=== PATIENT | male | born 1990 | race Caucasian/White ===

== ENCOUNTER 2018-12-10 19:59 | Inpatient (IN) | payer MEDICAID, OTHER ==
--- NOTE | 2018-12-10 20:24 | ED PDOC ---
Arrival/HPI - General Chief Complaint: Chest Pain Time Seen by Provider: 12/10/18 20:09 Historian: Patient - History of Present Illness Narrative History of Present Illness (Text): 12/10/18 20:23 Shun Vizcaino is a 28 year old male, whose past medical history includes hypertension, who presents to the ED complaining of chest pain. Patient states he has been experiencing left-sided chest pain intermittently for the past 3 days. Patient notes his blood pressure has been elevated but reports that he does not take any antihypertensive medication. Patient denies any fever, chills, shortness of breath, nausea, vomiting, diarrhea, urinary symptoms, back pain, neck pain, headache, dizziness, or any other complaints. Time/Duration: < week Symptom Onset: Gradual Symptom Course: Unchanged Activities at Onset: Light Context: Home Past Medical History - Provider Review Nursing Documentation Reviewed: Yes - Infectious Disease Hx of Infectious Diseases: None - Psychiatric Hx Substance Use: No - Anesthesia Hx Anesthesia: No Family/Social History - Physician Review Nursing Documentation Reviewed: Yes Family/Social History: Unknown Family HX Smoking Status: Never Smoked Hx Alcohol Use: No Hx Substance Use: No Allergies/Home Meds Allergies/Adverse Reactions: Allergies No Known Allergies Allergy (Verified 12/10/18 20:09) Home Medications: Home Meds Medication Instructions Recorded Confirmed No Known Home Med 12/10/18 12/10/18 Review of Systems - Physician Review All systems were reviewed & negative as marked: Yes - Review of Systems Constitutional: Normal. absent: Fevers Eyes: Normal ENT: Normal Respiratory: Normal. absent: SOB, Cough Cardiovascular: Chest Pain, Other (+high blood pressure) Gastrointestinal: Normal. absent: Abdominal Pain, Diarrhea, Nausea, Vomiting Genitourinary Male: Normal. absent: Dysuria, Frequency, Hematuria, Urinary Output Changes Musculoskeletal: Normal. absent: Back Pain, Neck Pain Skin: Normal. absent: Rash Endocrine: Normal Hemo/Lymphatic: Normal Psychiatric: Normal Physical Exam Vital Signs Reviewed: Yes Temperature: Afebrile Blood Pressure: Hypertensive Pulse: Regular Respiratory Rate: Normal Appearance: Positive for: Well-Appearing, Non-Toxic, Comfortable Pain Distress: None Mental Status: Positive for: Alert and Oriented X 3 - Systems Exam Head: Present: Atraumatic, Normocephalic Pupils: Present: PERRL Extroacular Muscles: Present: EOMI Conjunctiva: Present: Normal Mouth: Present: Moist Mucous Membranes Neck: Present: Normal Range of Motion Respiratory/Chest: Present: Clear to Auscultation, Good Air Exchange. No: Respiratory Distress, Accessory Muscle Use Cardiovascular: Present: Regular Rate and Rhythm, Normal S1, S2. No: Murmurs Abdomen: No: Tenderness, Distention, Peritoneal Signs Back: Present: Normal Inspection Upper Extremity: Present: Normal Inspection. No: Cyanosis, Edema Lower Extremity: Present: Normal Inspection. No: Edema Neurological: Present: GCS=15, CN II-XII Intact, Speech Normal Skin: Present: Warm, Dry, Normal Color. No: Rashes Psychiatric: Present: Alert, Oriented x 3, Normal Insight, Normal Concentration Medical Decision Making ED Course and Treatment: 12/10/18 20:23 Impression: 28 year old male complaining of chest pain and high blood pressure. Plan: -- EKG -- Chest X-ray -- Labs, cardiac enzymes -- Urinalysis -- Nitroglycerin -- Aspirin -- Reassess and disposition Prior Visits: Notes and results from previous visits were reviewed. Progress Notes: Reviewed EKG, NSR at 86 bpm[address] Non-specific ST/T wave changes. 12/10/18 22:55 Chest X-ray reviewed, shows no acute processes. 12/10/18 23:04 Case discussed with medical translator plastic injection mold maker, who is aware and agrees with plan. 12/10/18 23:[address] Strange, who is aware and agrees with plan. Accepts pt in to hospitalist service. - Scribe Statement The provider has reviewed the documentation as recorded by the Karyn Li Provider Scribe Attestation: All medical record entries made by the Scribtam were at my direction and personally dictated by me. I have reviewed the chart and agree that the record accurately reflects my personal performance of the history, physical exam, medical decision making, and the department course for this patient. I have also personally directed, reviewed, and agree with the discharge instructions and disposition. Disposition/Present on Arrival - Present on Arrival Any Indicators Present on Arrival: No History of DVT/PE: No History of Uncontrolled Diabetes: No Urinary Catheter: No History of Decub. Ulcer: No History Surgical Site Infection Following: None - Disposition Have Diagnosis and Disposition been Completed?: Yes Diagnosis: Chest pain Disposition: HOSPITALIZED Disposition Time: 23:00 Condition: GOOD
[2018-12-10] MEDS ORDERED: Nitroglycerin 2% Ointment Foilpak UD TOP STA (20:25)
[2018-12-10 20:46] LABS: BASO # 0.04 {null, K/mm3} (0.0-2.0); BASO % 0.5 % (0.0-3.0); EOS # 0.2 (0.0-0.7); EOS % 2.9 % (1.5-5.0); HEMOGLOBIN 13.5 g/dL (14.0-18.0); LYMPH # 2.9 (1.2-3.4); LYMPH % 34.5 % (22.0-35.0); MEAN CELL VOLUME 83.5 fl (80.0-105.0); MEAN CORPUSCULAR HEMOGLOBIN 28.2 pg (25.0-35.0); MEAN CORPUSCULAR HGB CONC 33.8 g/dl (31.0-37.0); MONO # 0.5 (0.1-0.6); MONO % 6.3 % (1.0-6.0); RBC 4.78 {null, 10^6/uL} (3.5-6.1); RED CELL DISTRIBUTION WIDTH 13.2 % (11.5-14.5); WHITE BLOOD COUNT 8.3 {null, 10^3/uL} (4.5-11.0)
[2018-12-10 20:57] LABS: ALB/GLOB RATIO 1.3 (1.1-1.8); ALBUMIN 4.4 g/dL (3.0-4.8); ALT/SGPT 32 U/L (7-56); AST/SGOT 39 U/L (17-59); BLOOD UREA NITROGEN 19 mg/dL (7-21); CALCIUM 9.4 mg/dL (8.4-10.5); GFR NON-AFRICAN AMERICAN > 60
[2018-12-10 21:08] LABS: TROPONIN I < 0.01 ng/mL
--- NOTE | 2018-12-11 00:05 | CP.PCM.HP ---
<Rey Daley - Last Filed: 12/11/18 00:38> History of Present Illness - History of Present Illness History of Present Illness: PGY-1 Medicine H&P for Dr. Strange CC: Chest pain HPI: Patient is a 28 year old male with a past medical history of hypertension presenting with left-sided chest pain. He describes the pain to be burning, constant, 3/10, and radiating to his left arm. Patient states that the pain is worse after meals and especially after eating spicy food. He states that he has been having this pain for many years but has been worse in the last 5 days. He states that taking Tums help relief the pain. 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 He states that he has hypertension but is not taking any medications because he does not have a primary care doctor. He is complaining of a headache that he states is secondary to his high blood pressure. He denies dizziness, changes in vision, changes in hearing, or speech changes. He further denies fevers, chills, shortness of breath, abdominal pain, nausea, vomiting, diarrhea, or urinary symptoms. 12-point ROS reviewed and negative except mentioned in HPI. PMHx: Hypertension PSHX: denies Allergies: NKDA Family Hx: Mother and father have diabetes. Social Hx: Denies tobacco, alcohol, or drug use. Patient works as a straight truck driver. Medications: Denies PMD: None Present on Admission - Present on Admission Any Indicators Present on Admission: No History of DVT/PE: No History of Uncontrolled Diabetes: No Urinary Catheter: No Decubitus Ulcer Present: No Past Patient History - Infectious Disease Hx of Infectious Diseases: None - Past Social History Smoking Status: Never Smoked - PSYCHIATRIC Hx Substance Use: No - SURGICAL HISTORY Hx Surgeries: No - ANESTHESIA Hx Anesthesia: No Meds Allergies/Adverse Reactions: Allergies Allergy/AdvReac Type Severity Reaction Status Date / Time No Known Allergies Allergy Verified 12/10/18 20:09 Physical Exam - Constitutional Appears: Well, Non-toxic, No Acute Distress - Head Exam Head Exam: ATRAUMATIC, NORMAL INSPECTION, NORMOCEPHALIC - Eye Exam Eye Exam: EOMI, Normal appearance, PERRL Pupil Exam: NORMAL ACCOMODATION - ENT Exam ENT Exam: Mucous Membranes Moist - Neck Exam Neck exam: Positive for: Normal Inspection. Negative for: Tenderness - Respiratory Exam Respiratory Exam: Clear to Auscultation Bilateral, NORMAL BREATHING PATTERN. absent: Accessory Muscle Use, Rales, Rhonchi, Wheezes, Respiratory Distress - Cardiovascular Exam Cardiovascular Exam: REGULAR RHYTHM, +S1, +S2. absent: Tachycardia, Gallop, Rubs, Systolic Murmur - GI/Abdominal Exam GI & Abdominal Exam: Normal Bowel Sounds, Soft. absent: Distended, Firm, Guarding, Tenderness - Back Exam Back exam: NORMAL INSPECTION. absent: CVA tenderness (L), CVA tenderness (R), paraspinal tenderness, vertebral tenderness - Neurological Exam Neurological exam: Alert, CN II-XII Intact, Oriented x3 - Psychiatric Exam Psychiatric exam: Normal Affect, Normal Mood - Skin Skin Exam: Dry, Intact, Normal Color, Warm Results - Vital Signs Recent Vital Signs: Last Vital Signs Temp 98.1 F 12/10/18 20:11 Pulse 80 12/10/18 23:38 Resp 18 12/10/18 21:54 BP 154/90 H 12/10/18 23:38 Pulse Ox 98 12/10/18 21:54 - Labs Result Diagrams: 12/10/18 20:38 12/10/18 20:38 Labs: Laboratory Results - last 24 hr 12/10/18 12/10/18 20:38 20:38 WBC 8.3 RBC 4.78 Hgb 13.5 L Hct 39.9 L MCV 83.5 MCH 28.2 MCHC 33.8 RDW 13.2 Plt Count 288 MPV 10.0 Neut % (Auto) 55.8 Lymph % (Auto) 34.5 Monroe % (Auto) 6.3 H Eos % (Auto) 2.9 Baso % (Auto) 0.5 Lymph # (Auto) 2.9 Monroe # (Auto) 0.5 Eos # (Auto) 0.2 Baso # (Auto) 0.04 Absolute Neuts (auto) 4.63 Sodium 139 Potassium 3.7 Chloride 103 Carbon Dioxide 27 Anion Gap 12 BUN 19 Creatinine 1.1 Est GFR ( Amer) > 60 Est GFR (Non-Af Amer) > 60 Random Glucose 122 H Calcium 9.4 Magnesium 2.1 Total Bilirubin 1.1 AST 39 ALT 32 Alkaline Phosphatase 57 Lactate Dehydrogenase 575 Total Creatine Kinase 181 Troponin I < 0.01 Total Protein 7.7 Albumin 4.4 Globulin 3.4 Albumin/Globulin Ratio 1.3 Assessment & Plan - Assessment and Plan (Free Text) Assessment: Patient is a 28 year old male with a past medical history of hypertension presenting with left-sided chest pain. Plan: Chest pain - Likely 2/2 GERD, rule out ACS - CXR: no acute findings (prelim report) - EKG: NSR at 86 bpm. Non-specific ST/T wave changes. - Follow up repeat EKG - Troponin: <0.01 X 1 - Trend troponin - Cardiology consulted, Dr. Strickland - Pepcid 20mg PO BID - Maalox PRN for heartburn - Tylenol PRN Uncontrolled hypertension - Hydralazine 10mg IVP Q6 PRN for SBP >180 - 1 dose of Lisinopril given in ED - Continue to monitor Prophylaxis: - DVT: Lovenox 40mg SC QD - GI: Pepcid 20mg PO BID Case discussed with attending, Dr. Strange. Rey Daley, PGY-1 <Ines Strange - Last Filed: 12/11/18 10:55> Results - Vital Signs Recent Vital Signs: Last Vital Signs Temp 97.6 F 12/11/18 06:00 Pulse 86 12/11/18 06:00 Resp 20 12/11/18 06:00 BP 133/79 12/11/18 06:00 Pulse Ox 98 12/11/18 06:00 - Labs Result Diagrams: 12/11/18 06:20 12/11/18 06:20 Labs: Laboratory Results - last 24 hr 12/10/18 12/10/18 12/11/18 20:38 20:38 06:20 WBC 8.3 9.4 RBC 4.78 4.75 Hgb 13.5 L 13.2 L Hct 39.9 L 40.0 L MCV 83.5 84.2 MCH 28.2 27.8 MCHC 33.8 33.0 RDW 13.2 13.3 Plt Count 288 283 MPV 10.0 9.9 Neut % (Auto) 55.8 65.3 Lymph % (Auto) 34.5 24.7 Monroe % (Auto) 6.3 H 7.7 H Eos % (Auto) 2.9 1.8 Baso % (Auto) 0.5 0.5 Lymph # (Auto) 2.9 2.3 Monroe # (Auto) 0.5 0.7 H Eos # (Auto) 0.2 0.2 Baso # (Auto) 0.04 0.05 Absolute Neuts (auto) 4.63 6.12 Sodium 139 Potassium 3.7 Chloride 103 Carbon Dioxide 27 Anion Gap 12 BUN 19 Creatinine 1.1 Est GFR ( Amer) > 60 Est GFR (Non-Af Amer) > 60 Random Glucose 122 H Calcium 9.4 Magnesium 2.1 Total Bilirubin 1.1 AST 39 ALT 32 Alkaline Phosphatase 57 Lactate Dehydrogenase 575 Total Creatine Kinase 181 Troponin I < 0.01 Total Protein 7.7 Albumin 4.4 Globulin 3.4 Albumin/Globulin Ratio 1.3 Triglycerides Cholesterol LDL Cholesterol Direct HDL Cholesterol 12/11/18 12/11/18 06:20 07:00 WBC RBC Hgb Hct MCV MCH MCHC RDW Plt Count MPV Neut % (Auto) Lymph % (Auto) Monroe % (Auto) Eos % (Auto) Baso % (Auto) Lymph # (Auto) Monroe # (Auto) Eos # (Auto) Baso # (Auto) Absolute Neuts (auto) Sodium 140 Potassium 3.8 Chloride 105 Carbon Dioxide 28 Anion Gap 12 BUN 17 Creatinine 1.1 Est GFR ( Amer) > 60 Est GFR (Non-Af Amer) > 60 Random Glucose 103 Calcium 9.0 Magnesium Total Bilirubin 1.0 AST 30 ALT 33 Alkaline Phosphatase 53 Lactate Dehydrogenase Total Creatine Kinase Troponin I < 0.01 Total Protein 7.3 Albumin 4.1 Globulin 3.2 Albumin/Globulin Ratio 1.3 Triglycerides 158 Cholesterol 150 LDL Cholesterol Direct 109 HDL Cholesterol 24 L Attending/Attestation - Attestation I have personally seen and examined this patient.: Yes I have fully participated in the care of the patient.: Yes I have reviewed all pertinent clinical information: Yes Notes (Text): 12/11/18 10:52 Patient was seen when he was in the ER. Medical record was reviewed. Agree with history, physical examination, assessment and plan.
[2018-12-11] MEDS ORDERED: Alum-Mag Hydrox-Simethicone Susp (30 mL) PO PRN (00:26)
[2018-12-11 00:29] VITALS: BMI 36.8
[2018-12-11 06:53] LABS: BASO # 0.05 {null, K/mm3} (0.0-2.0); BASO % 0.5 % (0.0-3.0); EOS # 0.2 (0.0-0.7); EOS % 1.8 % (1.5-5.0); HEMOGLOBIN 13.2 g/dL (14.0-18.0); LYMPH # 2.3 (1.2-3.4); LYMPH % 24.7 % (22.0-35.0); MEAN CELL VOLUME 84.2 fl (80.0-105.0); MEAN CORPUSCULAR HEMOGLOBIN 27.8 pg (25.0-35.0); MEAN PLATELET VOLUME 9.9 fl (7.0-11.0); MONO # 0.7 (0.1-0.6); MONO % 7.7 % (1.0-6.0); RBC 4.75 {null, 10^6/uL} (3.5-6.1); RED CELL DISTRIBUTION WIDTH 13.3 % (11.5-14.5); WHITE BLOOD COUNT 9.4 {null, 10^3/uL} (4.5-11.0)
[2018-12-11 07:14] LABS: TROPONIN I < 0.01 ng/mL
[2018-12-11 07:35] LABS: ALB/GLOB RATIO 1.3 (1.1-1.8); ALBUMIN 4.1 g/dL (3.0-4.8); ALT/SGPT 33 U/L (7-56); AST/SGOT 30 U/L (17-59); BLOOD UREA NITROGEN 17 mg/dL (7-21); GFR NON-AFRICAN AMERICAN > 60
[2018-12-11 07:52] VITALS: RESP 20
[2018-12-11 08:23] LABS: HDL CHOLESTEROL 24 mg/dL (29-60)
[2018-12-11 08:35] LABS: LDL CHOLESTEROL 109 mg/dL (0-129)
[2018-12-11] MEDS: Enoxaparin 40 mg Syringe SC SCH (09:16)
--- NOTE | 2018-12-11 10:43 | CARD ---
APPROVED REPORT Date of service: 12/11/2018 EKG Measurement Heart [id number] <Conclusion> Normal sinus rhythm Possible Left atrial enlargement Borderline ECG
--- NOTE | 2018-12-11 10:49 | CARD ---
APPROVED REPORT Date of service: 12/10/2018 EKG Measurement Heart [id number] <Conclusion> Normal sinus rhythm Possible Left atrial enlargement Borderline ECG
--- NOTE | 2018-12-11 12:23 | RAD ---
Date of service: 12/10/2018 HISTORY: Chest pain. COMPARISON: No prior. FINDINGS: LUNGS: No active pulmonary disease. PLEURA: No significant pleural effusion identified, no pneumothorax apparent. CARDIOVASCULAR: No atherosclerotic calcification present No radiographic findings to suggest acute or significant cardiovascular disease. OSSEOUS STRUCTURES: No significant abnormalities. VISUALIZED UPPER ABDOMEN: Normal. OTHER FINDINGS: None. IMPRESSION: No active disease.
[2018-12-11 15:01] LABS: PH,URINE 7.5 (4.7-8.0); URINE BILIRUBIN NEGATIVE (NEGATIVE); URINE BLOOD NEGATIVE (NEGATIVE); URINE GLUCOSE (UA) NEGATIVE (NEGATIVE); URINE LEUKOCYTE ESTERASE NEGATIVE Leu/uL (NEGATIVE); URINE PROTEIN NEGATIVE mg/dL (<30 mg/dL); URINE UROBILINOGEN 0.2 E.U./dL (<1 E.U./dL)
[2018-12-11 15:09] LABS: URINE APPEARANCE CLEAR (CLEAR); URINE COLOR YELLOW (YELLOW)
[2018-12-11 15:43] LABS: BARBITURATES, UR NEGATIVE (NEGATIVE); BENZODIAZEPINES, UR NEGATIVE (NEGATIVE); OPIATES, UR NEGATIVE (NEGATIVE); PHENCYCLIDINE, UR NEGATIVE (NEGATIVE)
--- NOTE | 2018-12-11 22:59 | CON ---
DATE: 12/11/2018 CARDIOLOGY CONSULT REASON FOR CONSULTATION: Chest pain. HISTORY OF PRESENT ILLNESS: The patient is a 28-year-old markedly obese, American male who has no known prior cardiac history except for mild hypertension, presented because of chest pain, which he describes as burning following meals. The patient denies any associated diaphoresis and he is unaware of any prior cardiac history. SOCIAL HISTORY: The patient is a nonsmoker and nondrinker. He works as a cdl a driver. MEDICATIONS: Hydralazine 10 mg intravenously every 6 hours p.r.n., Lovenox 40 mg subcutaneous once a day, Maalox plus 30 mL every 6 hours, Pepcid 20 mg p.o. twice a day, and Tylenol 650 mg every 6 hours. REVIEW OF SYSTEMS: No nausea or vomiting. No fever or chills. PHYSICAL EXAMINATION: GENERAL: The patient is a young male who does not appear to be in acute distress. VITAL SIGNS: Blood pressure 133/79, heart rate 86, temperature 97.6, and respirations 20. HEENT: Normocephalic. CHEST: Clear. HEART: S1 and S2 regular. EXTREMITIES: No edema. No calf tenderness. LABORATORY DATA: Today's hemoglobin and hematocrit 15.2 and 40. White count and platelet count are within normal limits. Today's SMA-7 is within normal limits. Three sets of troponins are negative. Lipid profiles are within normal limits except for HDL at 24. EKG revealed normal sinus rhythm, possibly left atrial enlargement. Chest x-ray revealed borderline cardiomegaly. ASSESSMENT: 1. Atypical chest pain, myocardial infarction is ruled out. 2. Hypertension. 3. Rule out peptic ulcer disease. RECOMMENDATIONS: Continue hydralazine 10 mg intravenously every 6 hours p.r.n. Continue subcutaneous Lovenox. Obtain an echocardiographic study as well as gallbladder ultrasound. Neil Strickland MD
[2018-12-12] MEDS ORDERED: Oxycodone/Acetaminophen 5/325 mg Tab PO STA (00:06)
[2018-12-12 06:28] LABS: BASO # 0.05 {null, K/mm3} (0.0-2.0); BASO % 0.5 % (0.0-3.0); EOS # 0.2 (0.0-0.7); HEMOGLOBIN 13.5 g/dL (14.0-18.0); LYMPH # 2.1 (1.2-3.4); LYMPH % 21.9 % (22.0-35.0); MEAN CELL VOLUME 84.2 fl (80.0-105.0); MEAN CORPUSCULAR HEMOGLOBIN 27.7 pg (25.0-35.0); MEAN CORPUSCULAR HGB CONC 32.9 g/dl (31.0-37.0); MEAN PLATELET VOLUME 9.7 fl (7.0-11.0); MONO # 0.8 (0.1-0.6); MONO % 8.6 % (1.0-6.0); RBC 4.87 {null, 10^6/uL} (3.5-6.1); RED CELL DISTRIBUTION WIDTH 13.3 % (11.5-14.5); WHITE BLOOD COUNT 9.6 {null, 10^3/uL} (4.5-11.0)
[2018-12-12 06:37] LABS: ALB/GLOB RATIO 1.2 (1.1-1.8); ALBUMIN 4.2 g/dL (3.0-4.8); ALT/SGPT 27 U/L (7-56); AST/SGOT 28 U/L (17-59); BLOOD UREA NITROGEN 14 mg/dL (7-21); CALCIUM 8.5 mg/dL (8.4-10.5); GFR NON-AFRICAN AMERICAN > 60
[2018-12-12] MEDS: Enoxaparin 40 mg Syringe SC SCH (09:23)
--- NOTE | 2018-12-12 10:39 | US ---
Date of service: 12/11/2018 HISTORY: r/o stones COMPARISON: None. TECHNIQUE: Sonographic evaluation of the right upper quadrant of the abdomen. FINDINGS: LIVER: Measures 14.21 x 11.72 cm in length. Increased echogenicity of the liver parenchyma. No mass. No intrahepatic bile duct dilatation. There is normal flow in the hepatic and portal veins. GALLBLADDER: Unremarkable. No gallstones. COMMON BILE DUCT: Measures 3 mm. No stones. No dilatation. PANCREAS: Not visualized RIGHT KIDNEY: Measures 11.21 x 5.32 x 5.27 cm in length. Normal echogenicity. No calculus, mass, or hydronephrosis. AORTA: Not visualized IVC: Not visualized OTHER FINDINGS: The report concurs with the preliminary [facility] report IMPRESSION: Fatty infiltration of the liver
--- NOTE | 2018-12-12 11:31 | CP.PCM.PN ---
<Martine Neal - Last Filed: 12/12/18 12:54> Subjective - Date & Time of Evaluation Date of Evaluation: 12/12/18 Time of Evaluation: 08:30 - Subjective Subjective: Pgy3 Medicine Progress note for Dr. Turcios Patient seen and examined at bedside. Nursing reported overnight patient complained of some diffuse body pains and had an elevated BP. This AM patient was resting comfortably with girlfriend at bedside. Continues to complain of body aches but denies any fever, chills, headache, dizziness, chest pain, palpitations, SOB, cough, abd pain, nausea, vomiting, bowel/bladder complaints, swelling in his legs bilaterally. Patient is eager to shower. Objective - Vital Signs/Intake and Output Vital Signs (last 24 hours): Temp Pulse Resp BP Pulse Ox 98.1 F 79 20 161/88 H 98 12/12/18 10:26 12/12/18 10:26 12/11/18 16:47 12/12/18 10:12/11/18 16:47 - Medications Medications: Current Medications Acetaminophen (Tylenol 325mg Tab) 650 mg PO Q6H PRN PRN Reason: Headache Last Admin: 12/12/18 10:26 Dose: 650 mg Al Hydrox/Mg Hydrox/Simethicone (Maalox Plus 30 Ml) 30 ml PO Q6H PRN PRN Reason: Indigestion / Heartburn Last Admin: 12/11/18 07:56 Dose: 30 ml Enoxaparin Sodium (Lovenox) 40 mg SC DAILY [facility]; Protocol Last Admin: 12/12/18 09:23 Dose: 40 mg Famotidine (Pepcid) 20 mg PO 1000,2200 [facility] Last Admin: 12/12/18 09:22 Dose: 20 mg Hydralazine HCl (Apresoline) 10 mg IVP Q6H PRN PRN Reason: Systolic Blood Pressure Last Admin: 12/12/18 00:21 Dose: 10 mg Lisinopril (Zestril) 10 mg PO DAILY [facility] Last Admin: 12/12/18 10:26 Dose: 10 mg - Labs Labs: 12/12/18 06:00 12/12/18 06:00 - Constitutional Appears: Non-toxic, No Acute Distress, Unkempt - Head Exam Head Exam: ATRAUMATIC, NORMAL INSPECTION, NORMOCEPHALIC - Eye Exam Eye Exam: EOMI, Normal appearance. absent: Conjunctival injection, Scleral icterus - ENT Exam ENT Exam: Mucous Membranes Moist - Neck Exam Neck Exam: Full ROM, Normal Inspection. absent: Lymphadenopathy - Respiratory Exam Respiratory Exam: Clear to Ausculation Bilateral, NORMAL BREATHING PATTERN. absent: Accessory Muscle Use, Rales, Rhonchi, Wheezes - Cardiovascular Exam Cardiovascular Exam: +S1, +S2. absent: Murmur - GI/Abdominal Exam GI & Abdominal Exam: Soft, Normal Bowel Sounds. absent: Firm, Guarding, Rigid, Tenderness - Rectal Exam Rectal Exam: Deferred - Extremities Exam Extremities Exam: Normal Capillary Refill, Normal Inspection. absent: Pedal Edema - Neurological Exam Neurological Exam: Alert, Awake, CN II-XII Intact, Oriented x3 - Psychiatric Exam Psychiatric exam: Normal Affect, Normal Mood - Skin Skin Exam: Dry, Intact, Normal Color, Warm Assessment and Plan - Assessment and Plan (Free Text) Assessment: 28yo male PMHx HTN presents with left sided chest pain. Patient admitted to telemetry for further management. 1. Chest pain r/o ACS 2. Uncontrolled HTN 3. Diffuse body aches 4. Elevated BMI 36.9 Plan: Patient's blood work, imaging, vitals, and nursing notes reviewed. Overnight patient required 10mg ivp hydralazine for elevated BP. Will start patient on Lisinopril 10mg daily and monitor BP. Regarding chest pain, patient's troponin negative x 3 and EKG had no acute ST changes. HgbA1c 6 and lipid panel WNL. As per cardio patient pending Echo. U/s gallbladder revealed fatty infiltration of the liver; normal echogenicity of right kidney. Will obtain nephrology consult in light of patient's young age and uncontrolled blood pressure. UTox on admission was negative. Patient on motrin and tylenol for diffuse body aches and maalox and pepcid for heart burn. Will continue Lovenox and SCDs for DVT ppx. Heart healthy diet on board and patient counseled on importance of a healthy diet and regular exercise. Will continue to monitor at this time. Discussed with Dr. Tam Neal PGY3 <Dada Turcios - Last Filed: 12/12/18 15:36> Objective - Vital Signs/Intake and Output Vital Signs (last 24 hours): Temp Pulse Resp BP Pulse Ox 98.1 F 79 20 161/88 H 98 12/12/18 10:26 12/12/18 10:26 12/11/18 16:47 12/12/18 10:26 12/11/18 16:47 - Medications Medications: Current Medications Acetaminophen (Tylenol 325mg Tab) 650 mg PO Q6H PRN PRN Reason: Headache Last Admin: 12/12/18 10:26 Dose: 650 mg Al Hydrox/Mg Hydrox/Simethicone (Maalox Plus 30 Ml) 30 ml PO Q6H PRN PRN Reason: Indigestion / Heartburn Last Admin: 12/11/18 07:56 Dose: 30 ml Enoxaparin Sodium (Lovenox) 40 mg SC DAILY [facility]; Protocol Last Admin: 12/12/18 09:23 Dose: 40 mg Famotidine (Pepcid) 20 mg PO 1000,2200 [facility] Last Admin: 12/12/18 09:22 Dose: 20 mg Hydralazine HCl (Apresoline) 10 mg IVP Q6H PRN PRN Reason: Systolic Blood Pressure Last Admin: 12/12/18 00:21 Dose: 10 mg Ibuprofen (Motrin Tab) 400 mg PO Q6H PRN PRN Reason: Pain, moderate (4-7) Lisinopril (Zestril) 10 mg PO DAILY [facility] Last Admin: 12/12/18 10:26 Dose: 10 mg - Labs Labs: 12/12/18 06:00 12/12/18 06:00 Attending/Attestation - Attestation I have personally seen and examined this patient.: Yes I have fully participated in the care of the patient.: Yes I have reviewed all pertinent clinical information, including history, physical exam and plan: Yes Notes (Text): 12/12/18 15:32 28 year old male with past medical history of hypertension who presented with complaint of chest pain. Serial cardiac enzymes were negative and ACS was ruled out. Cardiology evaluation was appreciated. Echocardiogram is done with pending read. Patient is noted to have uncontrolled hypertension. Started on lisinopril. He is also on iv hydralazine prn. Nephrology evaluation is requested. Counselled on diet, weight loss and exercise. Dada Turcios MD Hospitalist.
--- NOTE | 2018-12-12 17:01 | CARD ---
APPROVED REPORT Date of service: 12/12/2018 EXAM: Two-dimensional and M-mode echocardiogram with Doppler and color Doppler. INDICATION Chest Pain 2D DIMENSIONS Left Atrium (2D)3.8 (1.6-4.0cm)IVSd1.5 (0.7-1.1cm) LVDd4.9 (3.9-5.9cm)PWd1.4 (0.7-1.1cm) LVDs3.3 (2.5-4.0cm)FS (%) 34.0 % LVEF (%)62.8 (>50%) M-Mode DIMENSIONS Aortic Root3.80 (2.2-3.7cm)Aortic Cusp Exc.2.00 (1.5-2.0cm) Aortic Valve AoV Peak Kmtritof091.0cm/Fara Peak GR.13mmHg Mitral Valve MV E Lkqfgnzg94.7cm/sMV A Rgihovbq35.2cm/sE/A ratio0.8 TDI Lateral E' Peak V10.40cm/sMedial E' Peak V6.53cm/sE/Lateral E'7.2 E/Medial E'11.4 Pulmonary Valve PV Peak Lrhwgnjb510.0cm/sPV Peak Grad.5mmHg Tricuspid Valve TR Peak Gucixcze057ua/sRAP [id number] Peak Gr.21mmHg [id number] LEFT VENTRICLE The left ventricle is normal size. There is mild to moderate concentric left ventricular hypertrophy. The left ventricular function is normal.EF_65% There is normal LV segmental wall motion. Transmitral Doppler flow pattern is Grade III-reversible restrictive diastolic dysfunction. No left ventricle thrombus noted on this study. There is no ventricular septal defect visualized. There is no left ventricular aneurysm. There is no mass noted in the left ventricle. RIGHT VENTRICLE The right ventricle is normal size. There is normal right ventricular wall thickness. The right ventricular systolic function is normal. ATRIA The left atrium size is normal. The right atrium size is normal. 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 AORTIC VALVE The aortic valve is thickened but opens well. There is trace aortic regurgitation. There is no aortic valvular stenosis. There is no aortic valvular vegetation. MITRAL VALVE The mitral valve is thickened but opens well. Mitral regurgitation is trace. There is no mitral valve stenosis. There is no evidence of mitral valve prolapse. TRICUSPID VALVE The tricuspid valve leaflets are thickened , but open well. There is trace tricuspid regurgitation.RVSP-31 mmof Hg. There is no tricuspid valve stenosis. There is no tricuspid valve prolapse or vegetation. PULMONIC VALVE The pulmonary valve is normal in structure. There is trace pulmonic valvular regurgitation. There is no pulmonic valvular stenosis. GREAT VESSELS The aortic root is normal in size. The ascending aorta is normal in size. The pulmonary artery is normal. The IVC is normal in size and collapses >50% with inspiration. PERICARDIAL EFFUSION There is no pleural effusion. There is no pericardial effusion. <Conclusion> Normal Chamber Size. EF_60-65%. Trace MR/TR/ AR/ PI. RVSP-31 mm of Hg. No PE, No Vegetation or thrombus noted.
--- NOTE | 2018-12-12 17:31 | PN ---
DATE: 12/12/2018 SUBJECTIVE: The patient denies any chest pain or abdominal pain. PHYSICAL EXAMINATION: VITAL SIGNS: Blood pressure 161/88, heart rate 79, temperature 97.6, and respirations 20. HEENT: Normocephalic. CHEST: Clear. HEART: S1 and S2 regular. EXTREMITIES: No edema. LABORATORY DATA: Urine drug screen is negative. SMA-7 is within normal limits except for glucose of 121. Today's hemoglobin and hematocrit 15.5 and 41. White count and platelet count are within normal limits. Gallbladder ultrasound, fatty liver. ASSESSMENT: 1. Atypical chest pain, myocardial infarction ruled out. 2. Hypertension. 3. Obesity. 4. Fatty liver. RECOMMENDATIONS: Continue current hydralazine. Prophylaxis with subcutaneous Lovenox and Zestril. Obtain serum D-dimer and I will follow up echocardiographic study scheduled to be performed today. Neil Strickland MD
--- NOTE | 2018-12-13 07:11 | CP.PCM.PN ---
<ÁngelMartine - Last Filed: 12/13/18 15:55> Subjective - Date & Time of Evaluation Date of Evaluation: 12/13/18 Time of Evaluation: 07:15 - Subjective Subjective: Pgy3 Medicine Progress note for Dr. Turcios Patient seen and examined at bedside. Overnight patient had no acute events/complaints. This AM patient denied acute fever, chills, chest pain, palpitations, SOB, cough, abd pain, nausea, vomiting, bowel/bladder complaints, pain/swelling in his legs b/l. Patient is eating well. Objective - Vital Signs/Intake and Output Vital Signs (last 24 hours): Temp Pulse Resp BP Pulse Ox 98.1 F 80 20 161/88 H 98 12/12/18 10:26 12/12/18 22:00 12/12/18 04:35 12/12/18 10:26 12/12/18 04:35 - Medications Medications: Current Medications Acetaminophen (Tylenol 325mg Tab) 650 mg PO Q6H PRN PRN Reason: Headache Last Admin: 12/12/18 22:08 Dose: 650 mg Al Hydrox/Mg Hydrox/Simethicone (Maalox Plus 30 Ml) 30 ml PO Q6H PRN PRN Reason: Indigestion / Heartburn Last Admin: 12/11/18 07:56 Dose: 30 ml Enoxaparin Sodium (Lovenox) 40 mg SC DAILY [facility]; Protocol Last Admin: 12/12/18 09:23 Dose: 40 mg Famotidine (Pepcid) 20 mg PO 1000,2200 [facility] Last Admin: 12/12/18 09:22 Dose: 20 mg Hydralazine HCl (Apresoline) 10 mg IVP Q6H PRN PRN Reason: Systolic Blood Pressure Last Admin: 12/12/18 00:21 Dose: 10 mg Ibuprofen (Motrin Tab) 400 mg PO Q6H PRN PRN Reason: Pain, moderate (4-7) Lisinopril (Zestril) 10 mg PO DAILY [facility] Last Admin: 12/12/18 10:26 Dose: 10 mg - Labs Labs: 12/12/18 06:00 12/12/18 06:00 - Additional Findings Additional findings: - Constitutional Appears: Non-toxic, No Acute Distress, Unkempt - Head Exam Head Exam: ATRAUMATIC, NORMAL INSPECTION, NORMOCEPHALIC - Eye Exam Eye Exam: EOMI, Normal appearance. absent: Conjunctival injection, Scleral icterus - ENT Exam ENT Exam: Mucous Membranes Moist - Neck Exam Neck Exam: Full ROM, Normal Inspection. absent: Lymphadenopathy - Respiratory Exam Respiratory Exam: Clear to Ausculation Bilateral, NORMAL BREATHING PATTERN. absent: Accessory Muscle Use, Rales, Rhonchi, Wheezes - Cardiovascular Exam Cardiovascular Exam: +S1, +S2. absent: Murmur - GI/Abdominal Exam GI & Abdominal Exam: Soft, Normal Bowel Sounds. absent: Firm, Guarding, Rigid, Tenderness - Rectal Exam Rectal Exam: Deferred - Extremities Exam Extremities Exam: Normal Capillary Refill, Normal Inspection. absent: Pedal Edema - Neurological Exam Neurological Exam: Alert, Awake, CN II-XII Intact, Oriented x3 - Psychiatric Exam Psychiatric exam: Normal Affect, Normal Mood - Skin Skin Exam: Dry, Intact, Normal Color, Warm Assessment and Plan - Assessment and Plan (Free Text) Assessment: 28yo male PMHx HTN presents with left sided chest pain. Patient admitted to telemetry for further management. - Chest pain r/o ACS - Uncontrolled HTN - Diffuse body aches - Elevated BMI 36.9 Plan: Patient's blood work, imaging, vitals, and nursing notes reviewed. Regarding chest pain, patient's troponin negative x 3 and EKG had no acute ST changes. HgbA1c 6 and lipid panel WNL. Echo reviewed. U/s gallbladder revealed fatty infiltration of the liver; normal echogenicity of right kidney. Patient on Lisinopril 10mg and Lopressor 25mg bid for HTN. Hydralazine prn on board. Will f/u nephrology work up. UTox on admission was negative. Patient on motrin and tylenol for diffuse body aches and maalox and pepcid for heart burn. Patient on ASA 81mg as per cardio. Will continue Lovenox and SCDs for DVT ppx. Heart healthy diet on board and patient counseled on importance of a healthy diet and regular exercise. Will continue to monitor at this time. Patient will need outpatient stress test and close follow up. Discussed with Dr. Tam Neal PGY3 <Dada Turcios - Last Filed: 12/13/18 17:05> Objective - Vital Signs/Intake and Output Vital Signs (last 24 hours): Temp Pulse Resp BP Pulse Ox 97.7 F 73 20 146/82 97 12/13/18 16:00 12/13/18 16:00 12/13/18 16:00 12/13/18 16:00 12/13/18 16:00 - Medications Medications: Current Medications Acetaminophen (Tylenol 325mg Tab) 650 mg PO Q6H PRN PRN Reason: Headache Last Admin: 12/12/18 22:08 Dose: 650 mg Al Hydrox/Mg Hydrox/Simethicone (Maalox Plus 30 Ml) 30 ml PO Q6H PRN PRN Reason: Indigestion / Heartburn Last Admin: 12/11/18 07:56 Dose: 30 ml Aspirin (Aspirin Chewable) 81 mg PO DAILY [facility] Last Admin: 12/13/18 15:02 Dose: 81 mg Enoxaparin Sodium (Lovenox) 40 mg SC DAILY [facility]; Protocol Last Admin: 12/13/18 10:45 Dose: 40 mg Famotidine (Pepcid) 20 mg PO 1000,2200 [facility] Last Admin: 12/13/18 10:46 Dose: 20 mg Hydralazine HCl (Apresoline) 10 mg IVP Q6H PRN PRN Reason: Systolic Blood Pressure Last Admin: 12/13/18 15:10 Dose: 10 mg Ibuprofen (Motrin Tab) 400 mg PO Q6H PRN PRN Reason: Pain, moderate (4-7) Lisinopril (Zestril) 20 mg PO DAILY [facility] Metoprolol Tartrate (Lopressor) 25 mg PO BID [facility] - Labs Labs: 12/13/18 07:00 12/13/18 07:00 Attending/Attestation - Attestation I have personally seen and examined this patient.: Yes I have fully participated in the care of the patient.: Yes I have reviewed all pertinent clinical information, including history, physical exam and plan: Yes Notes (Text): 12/13/18 17:01 28 year old male with past medical history of hypertension who presented with complaint of chest pain and uncontrolled blood pressure. Serial cardiac enzymes were negative and ACS was ruled out. Echocardiogram showed preserved EF. Cardiology is following. BP is still uncontrolled at 180/106 this afternoon. Lisinopril is increased to 20 mg and metoprolol is added. He is also on hydralazine iv prn. He was seen by nephrology who ordered additional workup including renin/aldost erone and metanephrine studies. Counselled on diet, weight loss and exercise. Dada Turcios MD Hospitalist.
[2018-12-13 07:30] LABS: BASO # 0.03 {null, K/mm3} (0.0-2.0); BASO % 0.4 % (0.0-3.0); EOS # 0.3 (0.0-0.7); EOS % 4.1 % (1.5-5.0); HEMOGLOBIN 13.3 g/dL (14.0-18.0); LYMPH # 2.5 (1.2-3.4); LYMPH % 32.9 % (22.0-35.0); MEAN CELL VOLUME 85.7 fl (80.0-105.0); MEAN CORPUSCULAR HEMOGLOBIN 27.9 pg (25.0-35.0); MEAN CORPUSCULAR HGB CONC 32.5 g/dl (31.0-37.0); MEAN PLATELET VOLUME 9.8 fl (7.0-11.0); MONO # 0.7 (0.1-0.6); MONO % 8.7 % (1.0-6.0); RBC 4.77 {null, 10^6/uL} (3.5-6.1); RED CELL DISTRIBUTION WIDTH 13.2 % (11.5-14.5); WHITE BLOOD COUNT 7.5 {null, 10^3/uL} (4.5-11.0)
[2018-12-13 07:45] LABS: ALB/GLOB RATIO 1.2 (1.1-1.8); ALT/SGPT 23 U/L (7-56); AST/SGOT 27 U/L (17-59); BLOOD UREA NITROGEN 18 mg/dL (7-21); CALCIUM 8.7 mg/dL (8.4-10.5); GFR NON-AFRICAN AMERICAN > 60
[2018-12-13] MEDS: Enoxaparin 40 mg Syringe SC SCH (10:45)
--- NOTE | 2018-12-13 15:56 | CON ---
DATE: 12/13/2018 REASON FOR CONSULTATION: Severe hypertension. HISTORY OF PRESENTING ILLNESS: A 28-year-old male admitted on 12/12 with complaints of severe elevated blood pressure at home. The patient gives a history of chronic headache. He reports that his pressure has been running anywhere between 190-210 systolic and 100-124 diastolic at home for the last 4 days. He denies any nausea or vomiting. He denies any weakness in any part of the body. He denies any chest tightness. Denies any shortness of breath. Denies any urinary complaints. In the emergency room, he was found to have blood pressure of 185/114. LABORATORY DATA: His WBC count was normal. His hemoglobin was normal. His initial blood work showed sodium of 139 and a potassium of 3.7 and the CO2 of 27. His urinalysis did not show any proteinuria or blood in the urine. Consultation is requested for severe uncontrolled hypertension. PAST MEDICAL AND SURGICAL HISTORY: None. FAMILY HISTORY: Diabetes. SOCIAL HISTORY: No smoking, no alcohol use, no IV drug abuse. ALLERGIES: NO KNOWN DRUG ALLERGIES. MEDICATIONS: None at home. REVIEW OF SYSTEMS: All unremarkable. PHYSICAL EXAMINATION GENERAL: Obese young male who looks much older than 28, sitting in bed. VITAL SIGNS: Blood pressure 151/94, heart rate 78, respiratory rate 20, temperature 98. HEENT: Normocephalic, atraumatic, positive pallor. NECK: Supple, no JVD. LUNGS: Bilateral equal air entry, bilateral equal expansion. CARDIAC: S1 and S2, regular rate rhythm, no murmur, no rub. ABDOMEN: Obese, distended, soft, nontender, bowel sounds present. EXTREMITIES: No lower extremity edema. LABORATORY DATA: Potassium 3.9, CO2 of 26. Urinalysis unremarkable. CURRENT MEDICATIONS: Pepcid 20 b.i.d., Tylenol, Zestril 10 mg, Lopressor 25 b.i.d. to start this evening. ASSESSMENT 1. Severe hypertension, duration unknown. 2. Unprovoked hypokalemia. 3. Alkalemia. PLAN 1. Check plasma renin, plasma aldosterone. 2. Check plasma metanephrines. 3. Check plasma cortisol. 4. Agree with lisinopril. 5. Recommend increasing dose to 20 mg daily. Alia Ji MD
--- NOTE | 2018-12-13 17:48 | PN ---
DATE: 12/13/2018 SUBJECTIVE: The patient denied any chest pain or abdominal pain. PHYSICAL EXAMINATION: VITAL SIGNS: Blood pressure 151/94, heart rate 78, temperature 98.1, respirations 20. HEENT: Normocephalic. CHEST: Clear. HEART: S1 and S2. Regular. EXTREMITIES: No edema. LABORATORY DATA: Today's hemoglobin and hematocrit 15.3 and 40.9, white count and platelet count are within normal limits. Today SMA-7 is within normal limit. D-dimer is within normal limit. ASSESSMENT: 1. Chest pain, myocardial infarction was ruled out. 2. Uncontrolled hypertension. 3. Fatty liver. RECOMMENDATIONS: Continue Zestril 10 mg once a day, start aspirin 81 mg once a day, Lopressor at 50 mg twice a day. The patient should be considered for outpatient stress test. The case was discussed with the medical care manager and will be discussed with Dr. Turcios. The patient and his at the bedside was strongly recommended to undergo stress test as an outpatient. Neil Strickland MD
[2018-12-14] MEDS: Enoxaparin 40 mg Syringe SC SCH (10:07)
[2018-12-14] MEDS ORDERED: Potassium Chloride 20 mEq ER Tab PO SCH (14:15)
[2018-12-14 16:35] VITALS: BP 168/105; TEMP 98.5; O2SAT 97
[2018-12-14 17:06] VITALS: PULSE 71
--- NOTE | 2018-12-14 17:20 | CP.PCM.DIS ---
<Krishan Mcneil - Last Filed: 12/15/18 08:57> Provider - Provider Date of Admission: 12/12/18 15:06 Attending physician: Dada Turcios MD Consults: 12/11/18 00:29 Physician Consult Routine Comment: Consulting Provider: Neil Strickland Consulting Physician: Neil Strickland Reason for Consult: chest pain 12/12/18 10:13 Nephrology Consult Routine Comment: Consulting Provider: Agapito Bingham Consulting Physician: Agapito Bingham Reason for Consult: htn Time Spent in preparation of Discharge (in minutes): 45 Diagnosis - Discharge Diagnosis (1) Chest pain Status: Acute Priority: High (2) Uncontrolled hypertension Status: Acute Priority: High Hospital Course - Lab Results Lab Results: Most Recent Lab Values WBC 7.5 10^3/uL (4.5-11.0) D 12/13/18 07:00 RBC 4.77 10^6/uL (3.5-6.1) 12/13/18 07:00 Hgb 13.3 g/dL (14.0-18.0) L 12/13/18 07:00 Hct 40.9 % (42.0-52.0) L 12/13/18 07:00 MCV 85.7 fl (80.0-105.0) 12/13/18 07:00 MCH 27.9 pg (25.0-35.0) 12/13/18 07:00 MCHC 32.5 g/dl (31.0-37.0) 12/13/18 07:00 RDW 13.2 % (11.5-14.5) 12/13/18 07:00 Plt Count 288 10^3/uL (120.0-450.0) 12/13/18 07:00 MPV 9.8 fl (7.0-11.0) 12/13/18 07:00 Neut % (Auto) 53.9 % (50.0-68.0) 12/13/18 07:00 Lymph % (Auto) 32.9 % (22.0-35.0) 12/13/18 07:00 [place] % (Auto) 8.7 % (1.0-6.0) H 12/13/18 07:00 Eos % (Auto) 4.1 % (1.5-5.0) 12/13/18 07:00 Baso % (Auto) 0.4 % (0.0-3.0) 12/13/18 07:00 Lymph # (Auto) 2.5 (1.2-3.4) 12/13/18 07:00 [place] # (Auto) 0.7 (0.1-0.6) H 12/13/18 07:00 Eos # (Auto) 0.3 (0.0-0.7) 12/13/18 07:00 Baso # (Auto) 0.03 K/mm3 (0.0-2.0) 12/13/18 07:00 Absolute Neuts (auto) 4.02 (1.4-6.5) 12/13/18 07:00 D-Dimer, Quantitative < 200 ng/mlDDU (0-243) 12/12/18 13:05 Sodium 141 mmol/L (132-148) 12/13/18 07:00 Potassium 4.1 mmol/L (3.6-5.0) 12/13/18 07:00 Chloride 104 mmol/L (98-107) 12/13/18 07:00 Carbon Dioxide 27 mmol/L (21-33) 12/13/18 07:00 Anion Gap 13 (10-20) 12/13/18 07:00 BUN 18 mg/dL (7-21) 12/13/18 07:00 Creatinine 1.0 mg/dl (0.8-1.5) 12/13/18 07:00 Est GFR ( Amer) > 60 12/13/18 07:00 Est GFR (Non-Af Amer) > 60 12/13/18 07:00 Random Glucose 110 mg/dL (70-110) 12/13/18 07:00 Hemoglobin A1c 6.0 % (4.2-6.5) 12/11/18 08:34 Calcium 8.7 mg/dL (8.4-10.5) 12/13/18 07:00 Magnesium 2.1 mg/dL (1.7-2.2) 12/10/18 20:38 Total Bilirubin 1.4 mg/dL (0.2-1.3) H 12/13/18 07:00 AST 27 U/L (17-59) 12/13/18 07:00 ALT 23 U/L (7-56) 12/13/18 07:00 Alkaline Phosphatase 56 U/L (38-126) 12/13/18 07:00 Lactate Dehydrogenase 575 U/L (333-699) 12/10/18 20:38 Total Creatine Kinase 181 U/L (35-230) 12/10/18 20:38 Troponin I < 0.01 ng/mL 12/11/18 10:40 Total Protein 7.4 g/dL (5.8-8.3) 12/13/18 07:00 Albumin 4.0 g/dL (3.0-4.8) 12/13/18 07:00 Globulin 3.4 gm/dL 12/13/18 07:00 Albumin/Globulin Ratio 1.2 (1.1-1.8) 12/13/18 07:00 Triglycerides 158 mg/dL (35-160) 12/11/18 07:00 Cholesterol 150 mg/dL (130-200) 12/11/18 07:00 LDL Cholesterol Direct 109 mg/dL (0-129) 12/11/18 07:00 HDL Cholesterol 24 mg/dL (29-60) L 12/11/18 07:00 Urine Color Yellow (YELLOW) 12/11/18 14:30 Urine Appearance Clear (CLEAR) 12/11/18 14:30 Urine pH 7.5 (4.7-8.0) 12/11/18 14:30 Ur Specific [place] 1.020 (1.005-1.035) 12/11/18 14:30 Urine Protein Negative mg/dL (<30 mg/dL) 12/11/18 14:30 Urine Glucose (UA) Negative mg/dL (NEGATIVE) 12/11/18 14:30 Urine Ketones Negative mg/dL (NEGATIVE) 12/11/18 14:30 Urine Blood Negative (NEGATIVE) 12/11/18 14:30 Urine Nitrate Negative (NEGATIVE) 12/11/18 14:30 Urine Bilirubin Negative (NEGATIVE) 12/11/18 14:30 Urine Urobilinogen 0.2 E.U./dL (<1 E.U./dL) 12/11/18 14:30 Ur Leukocyte Esterase Negative Farhan/uL (NEGATIVE) 12/11/18 14:30 Urine Opiates Screen Negative (NEGATIVE) 12/11/18 14:30 Urine Methadone Screen Negative (NEGATIVE) 12/11/18 14:30 Ur Barbiturates Screen Negative (NEGATIVE) 12/11/18 14:30 Ur Phencyclidine Scrn Negative (NEGATIVE) 12/11/18 14:30 Ur Amphetamines Screen Negative (NEGATIVE) 12/11/18 14:30 U Benzodiazepines Scrn Negative (NEGATIVE) 12/11/18 14:30 U Oth Cocaine Metabols Negative (NEGATIVE) 12/11/18 14:30 U Cannabinoids Screen Negative (NEGATIVE) 12/11/18 14:30 - Hospital Course Hospital Course: Krishan Mcneil DO PGY1 - Internal Medicine Research Professor Of Biostatistics - Hospitalist DC Summary: 28M PMHx HTN presented w/ c/o L sided chest pain on 12/11 admitted for ACS work up/ rule out. EKG upon admission and Follow up EKG both NSR w/o ischemic changes; Troponin's negative x3. Echo performed which showed EF of 60-65%, Trace MR/TR/AR/PI, RVSP of 31mmHg, and Grade III reversible restrictive diastolic dysfunction. Cardiology consulted who recommended BP management as well as outpt stress test. BP medications adjusted; Nephrology consulted - renal workup intitiated; recommended for patient to follow up outpatient w/ primary in regards to blood pressure control, and further Rx management. Patient discharged home w/ Lisinopril 20mg Daily Metoprolol Tartrate 25mg BID HCTZ 25mg Daily ASA 81mg Daily Patient was seen and evaluated prior to discharged; no complaints of chest pain, sob, abd pain, n/v/d/c, fevers/chills. Prior to discharge patient noted to have elevated pressures; Patient asymptomatic; nephrology notified - stated patient OK for discharge. DC instructions, Follow up plan, home medications reviewed w/ patient Prior to DC, patient was seen, examined, discussed w/ attending Dr. Turcios - Date & Time of H&P Date of H&P: 12/11/18 Time of H&P: 00:05 Discharge Exam - Head Exam Head Exam: ATRAUMATIC, NORMAL INSPECTION, NORMOCEPHALIC - Eye Exam Eye Exam: EOMI, PERRL - Respiratory Exam Respiratory Exam: Clear to PA & Lateral, NORMAL BREATHING PATTERN. absent: Rales, Rhonchi, Wheezes - Cardiovascular Exam Cardiovascular Exam: RRR. absent: Systolic Murmur - GI/Abdominal Exam GI & Abdominal Exam: Normal Bowel Sounds, Soft. absent: Tenderness - Back Exam Back exam: absent: CVA tenderness (L), CVA tenderness (R) - Neurological Exam Neurological exam: Alert, Oriented x3 - Psychiatric Exam Psychiatric exam: Normal Affect, Normal Mood - Skin Skin Exam: Dry, Normal Color, Warm Discharge Plan - Discharge Medications Prescriptions: Aspirin [Aspirin Chewable] 81 mg PO DAILY #30 chew hydroCHLOROthiazide [Hydrodiuril] 25 mg PO DAILY #30 tab Lisinopril [Zestril] 20 mg PO DAILY #30 tab Metoprolol Tartrate [Lopressor] 25 mg PO BID #30 tab - Follow Up Plan Condition: GOOD Disposition: HOME/ ROUTINE Instructions: Cardiac Stress Test, Low Salt Diet, Controlling Your Blood Pressure Through Lifestyle, Hypertension (DC), Hypertension (GEN) Additional Instructions: You will receive a phone call regarding establishing care with our [place] [facility] [place] [facility] [place] Please notify the attendant you were recently admitted in the hospital. You will also receive a call regarding an out patient stress test through our [employer] service If you do not receive a phone call within 24-48 hours regarding stress test or follow up appointment please call [phone] Please take all medications as prescribed Aspirin 81mg Daily Hydrochlorothiazide 25mg daily Lisinopril 20mg daily Metoprolol Tartrate 25mg twice daily Please monitor your blood pressure once in the morning and once in the evening and keep a log of your pressure PLEASE BRING YOUR LOG TO YOUR FIRST APPOINTMENT Maintain a healthy weight. Get help to lose any extra pounds. Cut back on salt. Limit canned, dried, packaged, and fast foods. Don't add salt to your food at the table. Season foods with herbs instead of salt when you cook. Request no added salt when you go to a restaurant. The [place] [employer]'s (AHA) "ideal" sodium intake recommendation is 1,500 milligrams per day. However, since [place]'s eat so much salt, the AHA says a positive change can occur by cutting back to even 2,400 milligrams of sodium a day. Follow the DASH (Dietary Approaches to Stop Hypertension) eating plan. This plan recommends vegetables, fruits, whole gains, and other heart healthy foods. Begin an exercise program. Ask your doctor how to get started. The [place] [employer] recommends aerobic exercise 3 to 4 times a week for an average of 40 minutes at a time, with your doctor's approval. Limit drinks that contain caffeine (coffee, black or green tea, cola) to 2 per day. Never take stimulants such as amphetamines or cocaine; these drugs can be deadly for someone with high blood pressure. Control your stress. Learn stress-management techniques. Do not drink Alcohol, Do not smoke If you experience blood pressure greater than 180/110 on 2 or more consecutive readings by 4 hours please go to the nearest emergency room immediately If you experience chest pain, shortness of breath, headaches, weakness, trouble speaking, extreme drowsiness, confusion, fainting or dizziness, changes in vision, please go to the nearest emergency room immediately Referrals: [facility] [place] [facility] [place] <Dada Turcios - Last Filed: 12/15/18 11:28> Provider - Provider Date of Admission: 12/12/18 15:06 Attending physician: Dada Turcios MD Consults: 12/11/18 00:29 Physician Consult Routine Comment: Consulting Provider: Neil Strickland Consulting Physician: Neil Strickland Reason for Consult: chest pain 12/12/18 10:13 Nephrology Consult Routine Comment: Consulting Provider: Agapito Bingham Consulting Physician: Agapito Bingham Reason for Consult: htn Hospital Course - Lab Results Lab Results: Most Recent Lab Values WBC 7.5 10^3/uL (4.5-11.0) D 12/13/18 07:00 RBC 4.77 10^6/uL (3.5-6.1) 12/13/18 07:00 Hgb 13.3 g/dL (14.0-18.0) L 12/13/18 07:00 Hct 40.9 % (42.0-52.0) L 12/13/18 07:00 MCV 85.7 fl (80.0-105.0) 12/13/18 07:00 MCH 27.9 pg (25.0-35.0) 12/13/18 07:00 MCHC 32.5 g/dl (31.0-37.0) 12/13/18 07:00 RDW 13.2 % (11.5-14.5) 12/13/18 07:00 Plt Count 288 10^3/uL (120.0-450.0) 12/13/18 07:00 MPV 9.8 fl (7.0-11.0) 12/13/18 07:00 Neut % (Auto) 53.9 % (50.0-68.0) 12/13/18 07:00 Lymph % (Auto) 32.9 % (22.0-35.0) 12/13/18 07:00 [place] % (Auto) 8.7 % (1.0-6.0) H 12/13/18 07:00 Eos % (Auto) 4.1 % (1.5-5.0) 12/13/18 07:00 Baso % (Auto) 0.4 % (0.0-3.0) 12/13/18 07:00 Lymph # (Auto) 2.5 (1.2-3.4) 12/13/18 07:00 [place] # (Auto) 0.7 (0.1-0.6) H 12/13/18 07:00 Eos # (Auto) 0.3 (0.0-0.7) 12/13/18 07:00 Baso # (Auto) 0.03 K/mm3 (0.0-2.0) 12/13/18 07:00 Absolute Neuts (auto) 4.02 (1.4-6.5) 12/13/18 07:00 D-Dimer, Quantitative < 200 ng/mlDDU (0-243) 12/12/18 13:05 Sodium 141 mmol/L (132-148) 12/13/18 07:00 Potassium 4.1 mmol/L (3.6-5.0) 12/13/18 07:00 Chloride 104 mmol/L (98-107) 12/13/18 07:00 Carbon Dioxide 27 mmol/L (21-33) 12/13/18 07:00 Anion Gap 13 (10-20) 12/13/18 07:00 BUN 18 mg/dL (7-21) 12/13/18 07:00 Creatinine 1.0 mg/dl (0.8-1.5) 12/13/18 07:00 Est GFR ( Amer) > 60 12/13/18 07:00 Est GFR (Non-Af Amer) > 60 12/13/18 07:00 Random Glucose 110 mg/dL (70-110) 12/13/18 07:00 Hemoglobin A1c 6.0 % (4.2-6.5) 12/11/18 08:34 Calcium 8.7 mg/dL (8.4-10.5) 12/13/18 07:00 Magnesium 2.1 mg/dL (1.7-2.2) 12/10/18 20:38 Total Bilirubin 1.4 mg/dL (0.2-1.3) H 12/13/18 07:00 AST 27 U/L (17-59) 12/13/18 07:00 ALT 23 U/L (7-56) 12/13/18 07:00 Alkaline Phosphatase 56 U/L (38-126) 12/13/18 07:00 Lactate Dehydrogenase 575 U/L (333-699) 12/10/18 20:38 Total Creatine Kinase 181 U/L (35-230) 12/10/18 20:38 Troponin I < 0.01 ng/mL 12/11/18 10:40 Total Protein 7.4 g/dL (5.8-8.3) 12/13/18 07:00 Albumin 4.0 g/dL (3.0-4.8) 12/13/18 07:00 Globulin 3.4 gm/dL 12/13/18 07:00 Albumin/Globulin Ratio 1.2 (1.1-1.8) 12/13/18 07:00 Triglycerides 158 mg/dL (35-160) 12/11/18 07:00 Cholesterol 150 mg/dL (130-200) 12/11/18 07:00 LDL Cholesterol Direct 109 mg/dL (0-129) 12/11/18 07:00 HDL Cholesterol 24 mg/dL (29-60) L 12/11/18 07:00 Urine Color Yellow (YELLOW) 12/11/18 14:30 Urine Appearance Clear (CLEAR) 12/11/18 14:30 Urine pH 7.5 (4.7-8.0) 12/11/18 14:30 Ur Specific [place] 1.020 (1.005-1.035) 12/11/18 14:30 Urine Protein Negative mg/dL (<30 mg/dL) 12/11/18 14:30 Urine Glucose (UA) Negative mg/dL (NEGATIVE) 12/11/18 14:30 Urine Ketones Negative mg/dL (NEGATIVE) 12/11/18 14:30 Urine Blood Negative (NEGATIVE) 12/11/18 14:30 Urine Nitrate Negative (NEGATIVE) 12/11/18 14:30 Urine Bilirubin Negative (NEGATIVE) 12/11/18 14:30 Urine Urobilinogen 0.2 E.U./dL (<1 E.U./dL) 12/11/18 14:30 Ur Leukocyte Esterase Negative Farhan/uL (NEGATIVE) 12/11/18 14:30 Urine Opiates Screen Negative (NEGATIVE) 12/11/18 14:30 Urine Methadone Screen Negative (NEGATIVE) 12/11/18 14:30 Ur Barbiturates Screen Negative (NEGATIVE) 12/11/18 14:30 Ur Phencyclidine Scrn Negative (NEGATIVE) 12/11/18 14:30 Ur Amphetamines Screen Negative (NEGATIVE) 12/11/18 14:30 U Benzodiazepines Scrn Negative (NEGATIVE) 12/11/18 14:30 U Oth Cocaine Metabols Negative (NEGATIVE) 12/11/18 14:30 U Cannabinoids Screen Negative (NEGATIVE) 12/11/18 14:30 Attending/Attestation - Attestation I have personally seen and examined this patient.: Yes I have fully participated in the care of the patient.: Yes I have reviewed all pertinent clinical information, including history, physical exam and plan: Yes
--- NOTE | 2018-12-14 17:52 | PN ---
DATE: 12/14/2018 SUBJECTIVE: The patient denies any chest pain or dizziness. PHYSICAL EXAMINATION VITAL SIGNS: Blood pressure 157/95, heart rate 66, temperature 98 degrees Fahrenheit, and respirations 20 per minute. HEENT: Normocephalic. CHEST: Clear. HEART: S1 and S2, regular. EXTREMITIES: No edema. ASSESSMENT: 1. Atypical chest pain, myocardial infarction ruled out. 2. Uncontrolled hypertension. 3. Obesity. RECOMMENDATIONS: Continue current Lopressor 25 mg twice a day, Zestril 20 mg once a day, and subcutaneous Lovenox 40 mg daily. Start hydrochlorothiazide at 25 mg orally daily and K-Dur 20 mEq once a day. Neil Strickland MD
[2018-12-16 16:06] LABS: ALDO/PRA RATIO 10.4 Ratio (0.9-28.9)
== END 2018-12-14 18:54 | disposition home or self-care (01) | DRG 203 ==
LOC: ED 19:59 → ERH 23:04 → 3RSO 12-11 00:06 → OBSVTOIN 12-12 15:06
PROVIDERS: ADMIT Internal Medicine; ATTEND Internal Medicine
DX: R07.89 Other chest pain (principal); E87.3 Alkalosis; K76.0 Fatty (change of) liver, not elsewhere classified; I10 Essential (primary) hypertension; E66.9 Obesity, unspecified; E87.6 Hypokalemia; Z68.36 Body mass index [BMI] 36.0-36.9, adult; Z79.82 Long term (current) use of aspirin; Z83.3 Family history of diabetes mellitus

== ENCOUNTER 2019-01-13 08:56 | Outpatient (CLI) | payer MEDICAID | END 2019-01-13 08:57 | disposition home or self-care (01) | LOC: LAB 08:56 ==